=== PATIENT | male | born 1960 | race Caucasian/White ===

== ENCOUNTER 2025-06-05 15:03 | Emergency (ER) | payer BC, MEDICARE ==
[2025-06-05] MEDS ORDERED: Oxymetazoline HCl 0.05% (30 ML BOT) ONE (15:33)
[2025-06-05] MEDS ORDERED: Amoxicillin/Potassium Clav 875 MG TAB ONE (15:33)
== END 2025-06-05 15:44 | disposition home or self-care (01) ==
LOC: MADERS 15:03
DX: J01.90 Acute sinusitis, unspecified (principal); B96.89 Other specified bacterial agents as the cause of diseases classified elsewhere; I10 Essential (primary) hypertension; F17.210 Nicotine dependence, cigarettes, uncomplicated; Z79.899 Other long term (current) drug therapy
CPT/HCPCS: 99283